=== PATIENT | male | born 1965 | race Caucasian/White ===

== ENCOUNTER 2021-02-06 16:36 | Emergency (ER) | payer BC ==
--- NOTE | 2021-02-06 17:08 | ED Physician Documentation ---
PD HPI FOCAL NEURO - Stated complaint Stated Complaint: TEMP AMS - Chief complaint Chief Complaint: Neuro - History obtained from History obtained from: Patient - Additional information Additional information: Previously healthy 55-year-old gentleman was in his usual state of health texting friends around 2 PM when he could not recognize the words in the texts. Then he tried to tell his what was going on and was basically speaking gibberish. From his description it sounds like he was having more trouble with complicated words then with simple ones. He also could not write. It was associated with a very mild headache, but no weakness, numbness, tingling of the extremities or facial droop. No diplopia. He feels completely back to normal now. Review of Systems Ten Systems: 10 systems reviewed and negative Constitutional: reports: Reviewed and negative Cardiac: reports: Reviewed and negative Respiratory: reports: Reviewed and negative PD PAST MEDICAL HISTORY - Past Medical History Past Medical History: No - Allergies Allergies/Adverse Reactions: Allergies Allergy/AdvReac Type Severity Reaction Status Date / Time No Known Drug Allergies Allergy Verified 02/06/21 16:49 - Living Situation Living Situation: reports: With spouse/s.o. - Social History Does the pt smoke?: No Does the pt drink ETOH?: No - Family History Family history: reports: Non contributory PD ED PE NORMAL - Vitals Vital signs reviewed: Yes - General General: Alert and oriented X 3, No acute distress - HEENT HEENT: PERRL, EOMI - Neck Neck: Supple, no meningeal sign, No bony TTP - Cardiac Cardiac: RRR, No murmur - Respiratory Respiratory: No respiratory distress, Clear bilaterally - Abdomen Abdomen: Normal bowel sounds, Soft, Non tender - Back Back: No CVA TTP, No spinal TTP - Derm Derm: Normal color, Warm and dry - Extremities Extremities: No edema, No calf tenderness / cord - Neuro Neuro: Alert and oriented X 3, No motor deficit, No sensory deficit, Normal speech NIHSS - Time Time: 16:55 - Level of Consciousness Level of consciousness: (0) Alert, Keenly responsive LOC Questions: (0) Answers both Q's correct LOC Commands: (0) Performs both correctly - Gaze Best Gaze: (0) Normal - Visual Visual: (0) No loss - Facial Palsy Facial Palsy: (0) Normal, symmetrical movement - Motor Arms (both separate) Motor Arm (right): (0) No drift Motor Arm (left): (0) No drift - Motor Legs (both separate) Motor Leg (right): (0) No drift Motor Leg (left): (0) No drift - Limb Ataxia Limb Ataxia: (0) Absent - Sensory Sensory: (0) Normal - Best Language Best Language: (0) No aphasia - Dysarthria Dysarthria: (0) Normal - Extinction and Inattention (formally neg Extinction and inattention: (0) No abnormality - Total Score/Results Total Score/Result: 0 Results - Vitals Vitals: Vital Signs - 24 hr 02/06/21 16:44 Temperature 36.4 C L Heart Rate 76 Respiratory 16 Rate Blood Pressure 200/79 H O2 Saturation 97 Oxygen O2 Source Room air - EKG (time done) 1713 Rate: Rate (enter#) (67) Rhythm: NSR Orange: Normal Intervals: Other (v mild IVCD) QRS: Normal Ischemia: Normal ST segments - Labs Labs: Laboratory Tests 02/06/21 02/06/21 17:30 17:30 WBC 6.2 RBC 4.93 Hgb 14.8 Hct 45.7 MCV 92.7 MCH 30.0 MCHC 32.4 RDW 12.4 Plt Count 255 MPV 9.1 Neut # (Auto) 3.3 Lymph # (Auto) 1.9 [place] # (Auto) 0.8 Eos # (Auto) 0.3 Baso # (Auto) 0.0 Absolute Nucleated RBC 0.00 Nucleated RBC % 0.0 Sodium 138 Potassium 3.9 Chloride 103 Carbon Dioxide 27 Anion Gap 8.0 BUN 19 Creatinine 1.0 Estimated GFR (MDRD) 78 L Glucose 93 Calcium 9.2 - Rads (name of study) Angiography of the head and neck is normal without pathology or vascular issue Radiology: EMP read contemporaneously PD MEDICAL DECISION MAKING - ED course ED course: 55-year-old gentleman with 15-minute episode earlier in the day of language difficulties, both spoken and written and receptive. Now completely back to normal with an NIH stroke scale of 0. Differential diagnosis includes TIA, focal seizure, atypical migraine. 55-year-old gentleman presents after resolved episode of language difficulties only. This would have been very specific TIA if it was that, differential also includes migrainous or focal seizure although there was no other evidence of seizure activity. CT angiography of the head and neck was normal as per was EKG and labs. Advised baby aspirin a day pending PCP and neurology follow-up, Departure - Departure Disposition: 01 Home, Self Care Clinical Impression: Expressive language disorder, Stroke-like symptoms Condition: Good Record reviewed to determine appropriate education?: Yes Instructions: ED Transient Ischemic Attack Comments: As discussed, this could have been a TIA, or atypical migraine or very focal seizure. I am leaning towards migrainous, but recommend neurology follow-up. Follow-up with your primary care physician for neurology referral, until told otherwise after that consultation recommend taking a baby aspirin a day. Return for new or worsening symptoms. Your blood pressure was elevated today on check into the emergency department. This does not mean that you have hypertension, it is a common phenomenon to come to the emergency department and have elevated blood pressure. I recommend that you see your primary care physician within the week to have it rechecked when you are feeling better.
[2021-02-06] MEDS ORDERED: IOVERSOL 320 100 ML VIAL IVP ONE ×2 (17:13→18:14)
[2021-02-06 17:37] LABS: BASOPHILS % (AUTO) 0.5 %; EOSINOPHILS # (AUTO) 0.3 10^3/uL (0.0-0.7); EOSINOPHILS % (AUTO) 4.2 %; HCT - HEMATOCRIT 45.7 % (42.0-52.0); HGB - HEMOGLOBIN 14.8 g/dL (14.0-18.0); LYMPHOCYTES # (AUTO) 1.9 10^3/uL (1.5-3.5); LYMPHOCYTES % (AUTO) 30.3 %; MEAN CORPUSCULAR HGB CONC 32.4 g/dL (32.0-36.0); MEAN CORPUSCULAR VOLUME 92.7 fL (80.0-94.0); MEAN PLATELET VOLUME 9.1 fL (7.4-11.4); MONOCYTES # (AUTO) 0.8 10^3/uL (0.0-1.0); MONOCYTES % (AUTO) 12.5 %; NEUTROPHILS # (AUTO) 3.3 10^3/uL (1.5-6.6); NEUTROPHILS % (AUTO) 52.2 %; PLT - PLATELET COUNT 255 10^3/uL (130-450); RED BLOOD COUNT 4.93 10^6/uL (4.70-6.10); RED CELL DISTRIBUTION WIDTH 12.4 % (12.0-15.0); WHITE BLOOD COUNT 6.2 x10^3/uL (4.8-10.8)
[2021-02-06 17:50] LABS: CALCIUM 9.2 mg/dL (8.5-10.3); POTASSIUM 3.9 mmol/L (3.5-5.0)
--- NOTE | 2021-02-06 18:37 | CT Report ---
PROCEDURE: ANGIO HEAD W/WO INDICATIONS: TIA sx CONTRAST: IV CONTRAST: Optiray 320 ml: 80 PO CONTRAST: *NO PO CONTRAST TECHNIQUE: Precontrast 4.5 mm thick angled axial sections acquired from the foramen magnum to the vertex. Afte r the administration of intravenous contrast, 1 mm thick sections acquired through the [place]. Postcontrast 4.5 mm thick sections then re-acquired from the foramen magnum to the vertex. 3-di mensional scczegz-yraxihmpk-lnnmnmejzk (MIP) and/or volume rendering reformats were acquired of the c entral intracranial vasculature. For radiation dose reduction, the following was used: automated ex posure control, adjustment of mA and/or kV according to patient size. COMPARISON: None. FINDINGS: Image quality: Excellent. Anterior circulation: Intracranial internal carotid arteries are normal in size and flow. The flow within the paired anterior cerebral arteries is normal and symmetric. The flow within the middle cer ebral arteries is normal and symmetric. The anterior communicating artery is seen. No aneurysms are seen. Posterior circulation: Visualized portions of the vertebral arteries demonstrate normal caliber, and join to form a normal appearing basilar artery. Flow within the posterior cerebral arteries is norm al and symmetric. No aneurysms are seen. CSF spaces: Ventricles are normal in size and shape. Basal cisterns are patent. No extra-axial flu id collections. Brain: No midline shift. No intracranial bleeds or masses. Baldwin-white matter interface appears int act. No area of abnormal intracranial enhancement is seen. Skull and face: Calvarium and facial bones appear intact, without suspicious lesions. Sinuses: Visualized sinuses and mastoids are clear. IMPRESSION: 1. No CT evidence of acute intracranial pathology. No area of abnormal intracranial enhancement. 2. No hemodynamically significant stenosis or aneurysm is seen in intracranial circulation. Reviewed by: Sadiq Rizvi MD on 02/06/2021 6:36 PM PST Approved by: Sadiq Rizvi MD on 02/06/2021 6:36 PM PST Station ID: [id number]
--- NOTE | 2021-02-06 18:39 | CT Report ---
PROCEDURE: ANGIO NECK W INDICATIONS: TIA sx CONTRAST: IV CONTRAST: Optiray 320 ml: 80 PO CONTRAST: *NO PO CONTRAST TECHNIQUE: After the administration of intravenous contrast, 1.5 mm axial sections acquired from the aortic arch to the [place]. Coronal 3-D maximum intensity projection (MIP) and/or volume rendering ref ormats were then performed. For radiation dose reduction, the following was used: automated exposur e control, adjustment of mA and/or kV according to patient size. COMPARISON: None. FINDINGS: Image quality: Excellent. Carotid system: The great vessels demonstrate a conventional anatomy as they arise from the aortic [facility]. The origins of the common carotid arteries appear patent. The common carotid arteries demonstr ate normal calibers and courses. The bifurcation regions appear normal bilaterally. The internal ca rotid arteries demonstrate normal caliber and course. Posterior circulation: The origins of the vertebral arteries appear patent. The more superior porti ons of the vertebral arteries demonstrate normal course and caliber. Dominant right vertebral artery is noted which is a normal variant. They join to form a normal appearing basilar artery. Soft tissues: Visualized neck soft tissues demonstrate no suspicious abnormalities. The thyroid is normal in size and there are no incidental findings. Bones: No suspicious bony lesions. Visualized cervical spine appears normally aligned. IMPRESSION: No hemodynamically significant stenosis is seen in bilateral neck arteries. The estimate of stenosis included in the report of the imaging study was calculated using the NASCET method CLINICAL RECOMMENDATION STATEMENTS: In patients <35 years with an ITN detected on CT, MRI, or extrathyroidal ultrasound, the Committee re commends further evaluation with dedicated thyroid ultrasound if the nodule is "e1 cm and has no susp icious imaging features, and if the patient has normal life expectancy. In patients "e35 years with an ITN detected on CT, MRI, or extrathyroidal ultrasound, the Committee r ecommends further evaluation with dedicated thyroid ultrasound if the nodule is "e1.5 cm and has no s uspicious imaging features, and if the patient has normal life expectancy. (ACR, 2014) Reviewed by: Sadiq Rizvi MD on 02/06/2021 6:37 PM PST Approved by: Sadiq Rizvi MD on 02/06/2021 6:37 PM PST Station ID: [id number]
[2021-02-06 18:59] VITALS: BP 155/75
== END 2021-02-06 18:59 | disposition home or self-care (01) ==
LOC: ED 16:36
DX: F80.1 Expressive language disorder (principal); R03.0 Elevated blood-pressure reading, without diagnosis of hypertension
CPT/HCPCS: 36415; 70496; 70498; 80048; 85025; 93005; 99283; 99284; Q9967